=== PATIENT | male | born 1950 | race Caucasian/White ===

== ENCOUNTER 2016-12-09 17:50 | Emergency (ER) | payer BC, MEDICARE ==
[2016-12-09 18:43] VITALS: BP 151/86
--- NOTE | 2016-12-09 19:36 | UC ---
Throat Pain/Nasal [place] HPI - HPI Summary HPI Summary: "Just wore down. A lot of aches and pains..." Headache, sore throat, "swollen neck", myalgias, and increased sleeping "building for the last week or so". Patient watched his grandchildren for a week and they both have strep throat. Patient stated, "Penicillin usually doesn't work for me." Patient is retired. PCP Soraya Gore. [ End ] - History of Current Complaint Chief Complaint: UCGeneralIllness Stated Complaint: SORE THROAT/HEADACHE Time Seen by Provider: 12/09/16 19:32 Hx Obtained From: Patient Onset/Duration: Gradual Onset Severity: Moderate - Epiglottits Risk Factors Epiglottis Risk Factors: Negative - Allergies/Home Medications Allergies/Adverse Reactions: Allergies Allergy/AdvReac Type Severity Reaction Status Date / Time Sulfa Antibiotics Allergy Mild feels funny Verified 12/09/16 18:39 Shrimp Flavor Allergy Nausea And Verified 12/09/16 18:39 Vomiting Home Medications: Home Medications Esomeprazole(NF) [NexIUM(NF)] 40 mg PO DAILY PRN 12/09/16 [History Confirmed 04/20] Ibuprofen TAB* [Advil TAB*] 600 mg PO Q6H PRN 12/09/16 [History Confirmed ] PMH/Surg Hx/FS Hx/Imm Hx Previously Healthy: Yes Endocrine History Of: Denies: Diabetes Cardiovascular History Of: Reports: Cardiac Disorders - Dyslipidemia Denies: Hypertension, Pacemaker/ICD Respiratory History Of: Denies: Asthma - Surgical History Surgical History: Yes Surgery Procedure, Year, and Place: TONSILS. LT KNEE SURGERY - Family History Known Family History: Positive: None - Social History Occupation: Retired Lives: With Family Alcohol Use: Occasionally Substance Use Type: None Smoking Status (MU): Never Smoked Tobacco - Immunization History Most Recent Influenza Vaccination: November 2016 Review of Systems Constitutional: Chills, Fatigue Skin: Negative Eyes: Negative ENT: Sore Throat, Ear Ache, Nasal Discharge Respiratory: Negative Cardiovascular: Negative Gastrointestinal: Negative Genitourinary: Negative Motor: Negative Neurovascular: Negative Musculoskeletal: Negative, Myalgia Neurological: Negative Psychological: Negative All Other Systems Reviewed And Are Negative: Yes Physical Exam Triage Information Reviewed: Yes Appearance: Well-Appearing, No Pain Distress, Well-Nourished Vital Signs: Initial Vital Signs Temp 98.2 F 12/09/16 18:37 Pulse 70 12/09/16 18:37 Resp 18 12/09/16 18:37 BP 151/86 12/09/16 18:37 Pulse Ox 98 12/09/16 18:37 Vital Signs Reviewed: Yes Eye Exam: Normal Eyes: Positive: Conjunctiva Clear ENT Exam: Normal Dental Exam: Normal Neck exam: Normal Respiratory Exam: Normal Cardiovascular Exam: Normal Musculoskeletal Exam: Normal Neurological Exam: Normal Psychological Exam: Normal Skin Exam: Normal Throat Pain/Nasal Course/Dx - Course Course Of Treatment: Viral, neg strep, laryngitis, myalgias with ST/cough -- treat as viral at this time - Differential Dx/Diagnosis Differential Diagnosis/HQI/PQRI: Laryngitis, Pharyngitis, Tonsillitis, URI Provider Diagnoses: Viral pharyngitis Discharge - Discharge Plan Condition: Good Disposition: HOME Patient Education Materials: Pharyngitis (ED) Referrals: Soraya Gore MD [Primary Care Provider] - 3 Days (if your sypmtoms are not improved)
== END 2016-12-09 19:49 | disposition home or self-care (01) ==
LOC: UCCORT 17:50
DX: J02.9 Acute pharyngitis, unspecified (principal); R51 Headache; Z88.2 Allergy status to sulfonamides
CPT/HCPCS: 87651; 99211; G0463

== ENCOUNTER 2017-12-06 15:19 | Emergency (ER) | payer MEDICARE, BC ==
[2017-12-06 17:10] VITALS: BP 150/83
--- NOTE | 2017-12-06 17:18 | UC ---
Knee Pain HPI - HPI Summary HPI Summary: pt states he wrecked his L knee while standing and turning on thursday of this past week. he notes it has been swollen and painful but the swelling has improved. he has an ortho appt this thursday. the same knee has a meniscal tear in past. the knee does not lock but may give out a little. - History of Current Complaint Hx Obtained From: Patient, Family/Manager Fraud Onset/Duration: Sudden Onset Pain Intensity: 2 Character: Aching Aggravating Factor(s): Movement Alleviating Factor(s): Rest Associated Signs And Symptoms: Positive: Swelling. Negative: Weakness, Numbness , Tingling Able to Bear Weight: Yes - Risk Factors Septic Arthritis Risk Factor: Negative <Ana Aguila - Last Filed: 12/06/17 18:00> <Ivis Gore - Last Filed: 12/06/17 18:39> - History of Current Complaint Chief Complaint: UCLowerExtremity Stated Complaint: LEFT KNEE INJURY - Allergies/Home Medications Allergies/Adverse Reactions: Allergies Allergy/AdvReac Type Severity Reaction Status Date / Time shrimp Allergy Nausea And Verified 12/06/17 17:12 Vomiting Sulfa (Sulfonamide Allergy See Comment Verified 12/06/17 17:12 Antibiotics) Home Medications: Home Medications Aspirin EC Low Dose* [Ecotrin EC Low Dose 81 MG*] 1 tab DAILY 12/06/17 [History Confirmed 12/06/17] Atorvastatin* [Lipitor 10 MG*] 1 tab QAM 12/06/17 [History Confirmed 12/06/17] PMH/Surg Hx/FS Hx/Imm Hx - Additional Past Medical History Additional PMH: L meniscal tear Endocrine History: Dyslipidemia Cardiovascular History: Deep Vein Thrombosis - Surgical History Surgical History: Yes Surgery Procedure, Year, and Place: TONSILS. LT KNEE SURGERY - Family History Known Family History: Positive: None - Social History Lives: With Family Alcohol Use: Occasionally Substance Use Type: None Smoking Status (MU): Never Smoked Tobacco - Immunization History Most Recent Influenza Vaccination: November 2016 Vaccination Up to Date: Yes <Ana Aguila - Last Filed: 12/06/17 18:00> Review of Systems Constitutional: Negative Skin: Negative Eyes: Negative ENT: Negative Respiratory: Negative Cardiovascular: Negative Gastrointestinal: Negative Genitourinary: Negative Motor: Negative Neurovascular: Negative Musculoskeletal: Other: - pain and swelling L knee Neurological: Negative Psychological: Negative Is Patient Immunocompromised?: No All Other Systems Reviewed And Are Negative: Yes <Ana Aguila - Last Filed: 12/06/17 18:00> Physical Exam Triage Information Reviewed: Yes Appearance: Well-Appearing Vital Signs: Initial Vital Signs Temp 98.4 F 12/06/17 17:02 Pulse 73 12/06/17 17:02 Resp 16 12/06/17 17:02 BP 150/83 12/06/17 17:02 Pulse Ox 96 12/06/17 17:02 Vital Signs Reviewed: Yes Eyes: Positive: Conjunctiva Clear ENT: Positive: Normal ENT inspection Neck: Positive: Supple, Nontender Respiratory: Positive: Lungs clear, Normal breath sounds Cardiovascular: Positive: RRR, No Murmur Abdomen Description: Positive: Nontender, No Organomegaly, Soft Bowel Sounds: Positive: Present Musculoskeletal: Positive: Other: - LLE: hip non tender. L knee with mild swelling and tender to medial joint line but no laxity and rom(active/passive) is intact. ankle/ foot non tender. gross s/v/m is intact. Neurological: Positive: Alert Psychological: Positive: Normal Response To Family, Age Appropriate Behavior Skin Exam: Normal <Ana Aguila - Last Filed: 12/06/17 18:00> Vital Signs: Initial Vital Signs Temp 98.4 F 12/06/17 17:02 Pulse 73 12/06/17 17:02 Resp 16 12/06/17 17:02 BP 150/83 12/06/17 17:02 Pulse Ox 96 12/06/17 17:02 <Ivis Gore - Last Filed: 12/06/17 18:39> Diagnostics - Radiology No standard instances Xray Interpretation: Positive (See Comments) - OA, small effusion <Ana Aguila - Last Filed: 12/06/17 18:00> Knee Pain Course/Dx - Course Course Of Treatment: no concern for infection. no fx or dislocation. probable meniscal injury plus deg changes, small effusion noted. pt has ortho f/u in 2 days. will crutch pt but avoid patricia/immobilizer given no fx or laxity plus pt has hx DVT, - Differential Dx/Diagnosis Provider Diagnoses: Acute pain/swelling left knee. Probable meniscal tear. <Ana Aguila - Last Filed: 12/06/17 18:00> Discharge <Ana Aguila - Last Filed: 12/06/17 18:00> <Ivis Gore - Last Filed: 12/06/17 18:39> - Discharge Plan Condition: Stable Disposition: HOME Patient Education Materials: Knee Pain (ED), Meniscus Tear (ED) Referrals: Soraya Gore MD [Primary Care Provider] - If Needed Mena Cadena MD [Medical Doctor] - 2 Days Attestation Statement User Type: Provider - I was available for consult. This patient was seen by the advanced practice provider. The patient was not presented to, seen by, or examined by me.-Derrick <Ivis Gore - Last Filed: 12/06/17 18:39>
--- NOTE | 2017-12-06 17:52 | RAD ---
INDICATION: Left knee pain COMPARISON: October 22, 2012 TECHNIQUE: AP, lateral, tunnel, and sunrise views were obtained. FINDINGS: There is moderate to advanced tricompartmental osteoarthritis. There is narrowing is most severe about the medial and patellofemoral joint space compartments. There is condylar spurring and there is patellofemoral spurring. There is a small joint effusion. IMPRESSION: MODERATE TO ADVANCED OSTEOARTHRITIS WITH SMALL JOINT EFFUSION..
== END 2017-12-06 18:15 | disposition home or self-care (01) ==
LOC: UCCORT 15:19
DX: M25.562 Pain in left knee (principal); M25.462 Effusion, left knee; X50.0XXA Overexertion from strenuous movement or load, initial encounter; Y93.89 Activity, other specified; Y92.9 Unspecified place or not applicable; Z88.1 Allergy status to other antibiotic agents; Z91.013 Allergy to seafood; E78.5 Hyperlipidemia, unspecified
CPT/HCPCS: 99212; G0463

== ENCOUNTER 2018-02-16 07:49 | Inpatient (IN) | payer MEDICARE, BC ==
--- NOTE | 2018-02-11 14:30 | HP ---
PREOPERATIVE HISTORY AND PHYSICAL: DATE OF ADMISSION: 02/16/18 PROVIDER: Oanh Kendrick MD.* (DICTATED BY TAL JULIEN) CHIEF COMPLAINT: Left knee pain. HISTORY OF PRESENT ILLNESS: Mr. Jasso is a 67-year-old gentleman with complaints of ongoing left knee pain that has became chronic and aching over the last 2 years. He has difficulty ambulating more than half a block. He has difficulty with stair climbing and walking. He has failed conservative treatment and has elected to proceed with left total knee arthroplasty. PAST MEDICAL HISTORY: Left lower extremity DVT in February 2017, history of heart disease, atrial fibrillation, hypercholesterolemia, osteoarthritis, and hyperlipidemia. PAST SURGICAL HISTORY: Left knee arthroscopy in 2013, tonsils and adenoids, and a nasal surgery. He reports no complications with the anesthesia. CURRENT MEDICATIONS: 1. Crestor 10 mg p.o. daily. 2. Nexium 24-hour 20 mg by mouth twice daily. 3. Aspirin 81 mg p.o. daily. 4. Tylenol 325 mg 1 to 2 tabs every 8 hours as needed. 5. Advil 200 mg as needed. 6. Vitamin D 1000 international units daily. 7. CoQ-10 200 mg daily. 8. Cetirizine 10 mg daily. 9. Multivitamin daily. ALLERGIES: No known drug allergies. FAMILY HISTORY: Positive for diabetes, cancer, and rheumatoid arthritis. SOCIAL HISTORY: He lives with his . He is retired. He denies tobacco or recreational drug use. He drinks 1 to 2 alcoholic beverages weekly. He normally ambulates independently. He is right hand dominant. REVIEW OF SYSTEMS: A 14-point review of system was discussed with the patient. Positive for bilateral knee pain, negative for fever, chills, chest pain, shortness of breath, nausea, vomiting, headache, dizziness, vision or hearing changes, abdominal pain, easy bleeding or bruising. PHYSICAL EXAMINATION GENERAL: He is a well developed, well nourished pleasant man, in no acute distress at rest. He is alert and oriented x3 with appropriate mood and affect. Gait: He ambulates with an antalgic gait favoring the left knee. He has varus alignment. VITAL SIGNS: The patient is 6 feet 1 inch, 294 pounds. Blood pressure 140/84, pulse 67, temperature 96.8. HEENT: Normocephalic, atraumatic. His hearing and vision are grossly intact. NECK: Trachea is midline. RESPIRATORY: Lungs are clear to auscultation bilaterally. No wheezes, rales or rhonchi. CARDIOVASCULAR: Regular rate and rhythm. No murmurs, rubs, or gallops. Normal S1 and S2. ABDOMEN: Soft, nondistended, nontender, normal bowel sounds. EXTREMITIES: The left lower extremity skin is intact without abrasions or open wounds. There are no palpable masses or lymph nodes. He has a prior scar along the distal tibia. He has severe varus alignment of the knee with a moderate effusion, tenderness at the medial joint line, 15 to 120 degrees of flexion at the knee. No varus or valgus instability. Negative Rinku. Distally, he has 5/5 strength. Sensation to light touch is intact. He has 2+ dorsalis pedis pulse. DIAGNOSTIC STUDIES: Weightbearing films of the left knee were reviewed and showed [id number] arthritis in the medial compartment. He also had tricompartmental osteoarthritis with joint space narrowing, osteophyte formation , and subchondral sclerosis. IMPRESSION: Left knee osteoarthritis. PLAN/RECOMMENDATIONS: The patient is to undergo left total knee arthroplasty by Dr. Kendrick on 02/16/18. The risks, benefits and postoperative course were discussed with the patient at length and he would like to proceed. All of his questions were answered to his full satisfaction. He is understanding to call with problems or concerns. TAL JULIEN [id number]/[facility] #: [id number] TETE
[~2018-02-16 07:49] MED LIST: Buffered Lidocaine 0.9% SYRIN* 5 ML/SYR SYRINGE INTRADERM ONE
[2018-02-16] MEDS ORDERED: Buffered Lidocaine 0.9% SYRIN* 5 ML/SYR SYRINGE ONE (08:07)
[2018-02-16] MEDS ORDERED: ceFAZolin 1 GM in Dextrose (*) 1 GM/50 ML BAG IVPB ONE (08:07)
[2018-02-16] MEDS ORDERED: ceFAZolin 2 GM PREMIX (*) 2 GM/50 ML BAG IVPB ONE (08:07)
[2018-02-16] MEDS ORDERED: Bupivacaine 0.25% SDV* 30 ML ONE ×3 (09:17→09:23)
[2018-02-16] MEDS ORDERED: methylPREDNISolone ACETATE 80* 80 MG/ML 1 ML VIAL ONE (09:23)
[2018-02-16] MEDS ORDERED: Bupivacaine 0.5% PF 10 ML VIAL INJ ONE (09:25)
[2018-02-16] MEDS ORDERED: Midazolam* 1 MG/ML 5 ML VIAL (5 MG) ONE ×2 (09:26→10:14)
[2018-02-16] MEDS ORDERED: fentaNYL* 50 MCG/ML 2 ML VIAL (100 MCG VIAL) ONE ×2 (10:08→16:22)
[2018-02-16] MEDS ORDERED: Dexamethasone IV* 4 MG/ML 1 ML (4 MG) ONE (10:16)
[2018-02-16] MEDS ORDERED: fentaNYL* 50 MCG/ML 2 ML VIAL (100 MCG VIAL) IV PRN (11:00)
[2018-02-16] MEDS ORDERED: HYDROmorphone INJ* 1 MG/ML CARPUJECT SYRINGE IV PRN (11:00)
[2018-02-16] MEDS ORDERED: Ondansetron INJ* 2 MG/ML VIAL IV PRN (11:00)
[2018-02-16] MEDS ORDERED: Naloxone* 0.4 MG/ML 1 ML VIAL IV PRN (11:00)
[2018-02-16] MEDS ORDERED: DiMENhydriNATE IV* 50 MG/ML VIAL IV PUSH PRN (11:00)
[2018-02-16] MEDS ORDERED: HYDROcodone/ACETAMIN 5-325 MG* 1 TAB PO PRN (11:00)
[2018-02-16] MEDS ORDERED: oxyCODONE/Acetamin 5/325 MG* TAB PO PRN (11:00)
[2018-02-16] MEDS ORDERED: Midazolam* 1 MG/ML 2 ML VIAL (2 MG) ONE (11:27)
[2018-02-16] MEDS ORDERED: Ketorolac INJ* 30 MG/ML 1 ML VIAL ONE (12:54)
[2018-02-16] MEDS ORDERED: Ondansetron 40 MG VIAL* 2 MG/ML 20 ML VIAL IV PRN (13:03)
[2018-02-16] MEDS ORDERED: Acetaminophen TAB* 325 MG PO PRN (13:03)
[2018-02-16] MEDS ORDERED: Polyethylene Glycol 3350* 17 GM PACKET PO PRN (13:03)
[2018-02-16] MEDS ORDERED: Bisacodyl SUPP* 10 MG SUPP PR PRN (13:03)
[2018-02-16] MEDS ORDERED: Cyclobenzaprine TAB* 10 MG PO PRN (13:03)
[2018-02-16] MEDS ORDERED: Magnesium Hydroxide LIQ* 30 ML UDC PO PRN (13:03)
[2018-02-16] MEDS ORDERED: Ondansetron TAB* 4 MG PO PRN (13:03)
[2018-02-16] MEDS ORDERED: Morphine VIAL* 4 MG/ML VIAL (1 ml vial) IV PRN (13:03)
[2018-02-16] MEDS ORDERED: diPHENhydraMINE IV* 50 MG/ML 1 ml VIAL (BENADRYL) IV PRN (13:03)
[2018-02-16] MEDS ORDERED: Omeprazole CAP* 20 MG PO PRN (13:08)
--- NOTE | 2018-02-16 14:01 | RAD ---
Indication: Left knee replacement 2 views of left knee demonstrates bipolar left knee arthroplasty in satisfactory position. IMPRESSION: Left knee bipolar arthroplasty in satisfactory position.
[2018-02-16] MEDS ORDERED: oxyCODONE TAB* 5 MG TAB ONE (16:51)
[2018-02-16] MEDS: oxyCODONE TAB* 5 MG TAB PO PRN ×2 (16:52→22:31)
[2018-02-16] MEDS ORDERED: Warfarin TAB(*) 6 MG PO ONE (17:00)
[2018-02-16] MEDS: ceFAZolin 1 GM in Dextrose (*) 1 GM/50 ML BAG IVPB SCH (18:23)
[2018-02-16] MEDS: oxyCODONE/Acetamin 5/325 MG* TAB PO PRN (19:33)
--- NOTE | 2018-02-16 20:09 | CONS ---
CONSULTATION REPORT: DATE OF CONSULT: 02/16/18 PROVIDER: Lexii Lake NP ATTENDING PHYSICIAN: Dr. Doss (report dictated by Lexii Lake NP). REFERRING PHYSICIAN: Dr. Kendrick*, orthopedic surgeon. REASON FOR CONSULT: Co-medical management. HISTORY OF PRESENT ILLNESS: Mr. Jasso is a 67-year-old male with a past medical history of atrial fibrillation, hyperlipidemia, history of left lower extremity DVT in February 2017, and osteoarthritis, who underwent a left total knee arthroplasty with Dr. Kendrick today. Hospital Medicine was asked to co-medical manage. The patient was seen and evaluated in the PACU where he was found to be alert and oriented x3, lying in bed, with his at the bedside, he denies any pain. He offers no complaints at this time. The patient reports that he was on Xarelto after his DVT was diagnosed last year; however, is now on aspirin only. He has a history of paroxysmal atrial fibrillation in which he saw Dr. Lange and had a cardioversion and has had no further episodes and is on aspirin only. As far as he knows, he has maintained normal sinus rhythm. He currently offers no complaints. No shortness of breath, chest pain, or palpitations. No nausea or vomiting. No recent illnesses. PAST MEDICAL HISTORY: 1. GERD. 2. Paroxysmal atrial fibrillation, status post cardioversion in which he has maintained normal sinus rhythm and is on aspirin only. 3. History of allergic rhinitis. 4. Sleep apnea. 5. Hyperlipidemia. 6. History of left lower extremity DVT in February 2017 in which he finished a course of Xarelto, now is on aspirin only. 7. Osteoarthritis. 8. History of heart disease ?. PAST SURGICAL HISTORY: 1. Left knee arthroscopy in 2013. 2. Status post tonsillectomy and adenoidectomy. 3. Status post nasal surgery. MEDICATIONS: Home medications: 1. Crestor 10 mg p.o. daily. 2. Nexium 20 mg p.o. b.i.d. 3. Aspirin 81 mg p.o. daily. 4. Acetaminophen 325 mg 1 to 2 tabs every 8 hours as needed. 5. Advil 200 mg p.r.n. 6. Vitamin D 1000 units p.o. daily. 7. CoQ10 200 mg p.o. daily. Current medications: 1. Coumadin 6 mg p.o. once. 2. Crestor 10 mg p.o. q.a.m. 3. Percocet 5/325 mg 1 to 2 tabs p.o. q.4 hours p.r.n. 4. Oxycodone 10 mg p.o. q.4 hours p.r.n. 5. Zofran 4 mg p.o. q.6 hours p.r.n. 6. Morphine 2 mg IV q.2 hours p.r.n. 7. Narcan 0.8 mg IV q.2 hours p.r.n. 8. Milk of magnesia 30 mL p.o. b.i.d. and p.o. q.6 hours p.r.n. 9. Lactulose 30 mL p.o. q.6 hours p.r.n. 10. LR 100 mL/hour. 11. Lovenox 40 mg subcu q.24 hours. 12. Fentanyl 25 mcg IV q.2 hours p.r.n., max total 5 doses per Anesthesia. 13. Colace 100 mg p.o. b.i.d. 14. Benadryl 12.5 mg IV q.6 hours p.r.n. 15. Flexeril 10 mg p.o. t.i.d. p.r.n. 16. Zyrtec 10 mg p.o. q.a.m. 17. Cefazolin 1 g IV piggyback q.8 hours x3 only. 18. Dulcolax suppository 10 mg p.r. daily p.r.n. 19. Acetaminophen 650 mg p.o. q.4 hours p.r.n. ALLERGIES: SHRIMP, SULFA. FAMILY HISTORY: Diabetes, cancer, rheumatoid arthritis. The patient's father of sudden . SOCIAL HISTORY: Denies tobacco use. Drinks 1 to 2 alcohol beverages weekly. He lives with his , who is his healthcare proxy. 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 REVIEW OF SYSTEMS: A 14-point review of systems was performed. All the pertinent positives and negatives are mentioned in the history of present illness, otherwise negative. PHYSICAL EXAM: Vital Signs: Heart rate 62, respirations 18, O2 sat 97% on 2 L nasal cannula, blood pressure is 125/77, temperature 97.3. General Appearance: A 67-year-old obese male, lying in the bed in the PACU, alert and oriented x3 , slightly drowsy, in no acute distress. He awakes easily. is sitting at the bedside. HEENT: Head is normocephalic, atraumatic. Pupils are equal, round, and reactive to light. Oropharynx is clear. Dry mucous membranes. Cardiac: S1 and S2. Regular rate and rhythm. No murmur, rub, or gallop appreciated. No lower extremity edema noted. Lungs: Clear to auscultation bilaterally. Good aeration throughout. Abdomen: Soft, obese, nontender, and nondistended. Normal bowel sounds throughout. Extremities: No clubbing, cyanosis, or edema. Left knee is wrapped with an Romero bandage with cryo unit intact. Neuro: Alert and oriented x3. No focal deficits. The patient still cannot feel his left lower extremity. Good sensation to right lower extremity. Human Resources Services Specialist are equal and strong. No facial droop. Tongue is midline. ASSESSMENT AND PLAN: Mr. Jasso is a 67-year-old male with past medical history of paroxysmal atrial fibrillation, status post cardioversion, on aspirin only; history of left lower extremity deep venous thrombosis in February 2017 with a course of Xarelto, now only on aspirin; questionable history of heart disease; hyperlipidemia; osteoarthritis, who underwent a left total knee replacement today with Dr. Kendrick. [facility] will follow for co-medical management. 1. Status post left total knee arthroplasty, postop day 0. Disposition per Dr. Kendrick's orthopedic team. PT, OT, bowel regimen, and pain management. The patient has Lovenox 40 mg subcu 24 hours and is starting on Coumadin today. 2. Gastroesophageal reflux disease. Continue PPI, controlled. 3. History of atrial fibrillation, status post cardioversion. The patient has remained in normal sinus rhythm. We will continue to monitor, okay to hold aspirin in the postop setting. The patient will be starting on Coumadin, so the aspirin could technically be held on discharge, but he will need to restart this after he discontinues the Coumadin. The patient is not on any rate controlling medications as this is an isolated episode with successful cardioversion. We will obtain an EKG tomorrow morning. 4. History of deep venous thrombosis in 2006. As stated above, the patient did finish a course of Xarelto, now is on aspirin only. The patient is on DVT prophylaxis with Lovenox and will be bridged to Coumadin. 5. Vitamin D deficiency. Continue vitamin D supplementation 1000 units p.o. daily. 6. History of sleep apnea. The patient may use his own CPAP. 7. DVT prophylaxis: Lovenox q.24 hours with Coumadin starting this evening. Once INR is therapeutic, discontinue Lovenox. 8. Code status: Full code. TIME SPENT: Approximately 60 minutes was spent on this consultation. [facility] is going to follow along. LEXII LAKE, OFFICIAL COURT REPORTER [id number]/[facility] #: [id number] TETE
[2018-02-16] MEDS: Docusate CAP* 100 MG PO SCH (21:28)
[2018-02-16] MEDS: Magnesium Hydroxide LIQ* 30 ML UDC PO SCH (21:28)
[2018-02-17] MEDS: oxyCODONE/Acetamin 5/325 MG* TAB PO PRN ×5 (02:21→23:32)
[2018-02-17] MEDS: ceFAZolin 1 GM in Dextrose (*) 1 GM/50 ML BAG IVPB SCH ×2 (02:22→10:49)
[2018-02-17 05:54] LABS: Hematocrit 36 % (42-52); Hemoglobin 12.7 g/dl (14.0-18.0); Mean Platelet Volume 7.5 um3 (7.4-10.4); Platelet Count 167 10^3/ul (150-450)
[2018-02-17 05:59] LABS: INR 0.99 (0.77-1.02)
[2018-02-17 06:12] LABS: EGFR Non-African American 84.2 (>60)
[2018-02-17] MEDS: oxyCODONE TAB* 5 MG TAB PO PRN ×2 (06:36→12:49)
[2018-02-17] MEDS: Atorvastatin* 20 MG TAB PO SCH (08:24)
[2018-02-17] MEDS: Cetirizine* 10 MG TAB PO SCH (08:24)
[2018-02-17] MEDS: Docusate CAP* 100 MG PO SCH ×2 (08:24→20:57)
[2018-02-17] MEDS: Magnesium Hydroxide LIQ* 30 ML UDC PO SCH ×2 (08:52→20:58)
--- NOTE | 2018-02-17 09:21 | OP ---
DATE OF OPERATION: 02/16/18 - ROOM #348 DATE OF : 50 SURGEON: Oanh Kendrick MD BAG WORKER: TAL Joseph. Ms. Nguyen did help throughout the procedure with preparation of the leg, wound retraction, manipulation of the knee, and wound closure. ANESTHESIOLOGIST: Oleg Lloyd MD ANESTHESIA: Spinal. PRE-OP DIAGNOSES: 1. Bilateral severe degenerative osteoarthritis of the knees. 2. Severe end-stage degenerative osteoarthritis of the left knee joint. POST-OP DIAGNOSES: 1. Bilateral severe degenerative osteoarthritis of the knees. 2. Severe end-stage degenerative osteoarthritis of the left knee joint. OPERATIVE PROCEDURE: 1. Left total knee arthroplasty. 2. Right knee intraarticular injection under anesthesia. INDICATIONS: Ms. Jasso is a 67-year-old gentleman with years of increasingly severe left knee pain. He failed conservative treatment with antiinflammatories, pain medication, intraarticular injections, and physical therapy. Due to continued pain and decreased quality of life, he elected to undergo a left total knee arthroplasty. Radiographs showed [id number] arthritis. Informed consent was obtained from the patient. He understood the risks of surgery included but were not limited to bleeding, infection, damage to nearby structures, continued pain, need for further surgery, intra-operative fracture, nerve palsy, hardware failure or loosening, knee stiffness, loss of motion, stroke, heart attack, blood clot, and . He wished to proceed. TOURNIQUET TIME: 60 minutes. COMPLICATIONS: None. ESTIMATED BLOOD LOSS: 300 cc. SPECIMENS: Bone and cartilage from the left knee joint sent to Pathology. HARDWARE USED: This is uncemented [place] total knee arthroplasty. Two packages of Simplex bone cement. For the femur, a left size 8 posterior stabilized Legion Oxinium femoral component. For the tibia, a size 7 left tibial base plate Sun II. For the insert, a 9-mm posterior stabilized articular insert, size 7/8. For the patella, a 38-mm 3-peg all poly patella. INTRAOPERATIVE FINDINGS: Intraoperatively, the patient was noted to have severe end-stage arthritis in all three compartments with full-thickness loss of cartilage. At the start of the case, he had a 15-degree flexion contracture. This was corrected to full extension by the end of the case. DESCRIPTION OF PROCEDURE: Mr. Jasso was identified in the preanesthesia unit. His left lower extremity was marked as the correct operative side. Informed consent was signed and placed in the chart. The patient was taken to the operating room and placed under spinal anesthesia. A Singleton catheter was placed. Tourniquet was placed on the left thigh. Left lower extremity was prepped and draped in the usual sterile fashion. Preop time-out was made to correctly identify the patient's side and site. Appropriate perioperative antibiotics were given within 1 hour of incision. A 12-cm midline incision was made with a 10 blade and carried down to the extensor mechanism. A new 10 blade was used to make a standard medial parapatellar arthrotomy. The patella was subluxed laterally. Electrocautery was used to subperiosteally elevate the soft tissue off the superomedial tibia to the mid sagittal plane. The knee was flexed up. The anterior horn of the lateral meniscus and ACL were sharply released. A drill was used to enter the distal femur. Intramedullary distal femoral cutting guide was pinned on the distal femur. Oscillating saw was used to make the distal femoral cut. Next, the external rotation guide was pinned on the distal femur. The distal femur was sized to a size 8. Size 8 cutting jig was pinned on the distal femur. Oscillating saw was used to make the appropriate 4 chamfer cuts. The PCL was completely released. The tibia was subluxed anteriorly. Extramedullary tibial cutting guide was pinned on the proximal tibia. Oscillating saw was used to make the proximal tibial cut perpendicular to the mechanical axis of the tibia. Tibial bone was carefully removed. The knee was brought out into full extension. The spacer block had good fit with the knee in full extension. Medial and lateral ligaments were well balanced. Flexion and extension gaps were well balanced. The knee was flexed up. Lamina blower feeder dyed raw stock was placed both medially and laterally. Any remaining meniscus was carefully removed using electrocautery. Curved osteotome was used to remove posterior osteophytes. Once again, confirmed the satisfactory tibial cut. Size 8 left femoral trial was impacted on to the distal femur. The box for posterior stabilized implant was prepared using a reamer and box-cut osteotome. A size 7 tibial tray trial with a 9- mm insert trial was placed and the knee was taken through a range of motion. The knee had full extension to with satisfactory patellofemoral tracking. The patella was everted. 9 mm of patellar bone and cartilage was carefully removed using an oscillating saw. Patella was sized to a size 38. Two peg holes were drilled through the size 38 guide. A 38 trial placed and the knee was taken through a range of motion. There was satisfactory patellofemoral tracking. All trials were carefully removed. The tibia was subluxed anteriorly and sized to a size 7. Proximal tibia was prepared using a size 7 keel punch. All bony cut surfaces were copiously irrigated with sterile saline and dried. Final implants were cemented into place starting with the tibia followed by the femur and lastly patella. -mm insert trial was placed and the knee was brought out into full extension. Tourniquet was turned down at 60 minutes. The cement was allowed to fully cure. Electrocautery was used to obtain meticulous hemostasis. The knee was copiously irrigated with sterile saline. Once the cement had fully cured, the insert trial was removed. Any excess cement was removed from around the implants and capsule. 9-mm insert was chosen as the final insert. A 9- mm posterior stabilized articular insert was then locked into position on the tibial tray. Stability of the insert was checked and rechecked and noted to be stable. The extensor mechanism was closed using interrupted #1 Vicryls over a medium Hemovac drain. The rest of the incision was closed in a layered fashion using 0 and 2-0 Vicryls. The skin was closed using running 3-0 nylon suture. Sterile Xeroform, 4x4s, and Webril were used to cover the incision. Romero wrap and cold pack were placed over this. The patient's right knee was prepped with ChloraPrep. An intraarticular injection of 80 mg of Depo-Medrol and 6 cc of 0.25% Marcaine was placed in the knee joint. The patient was taken to the PACU in stable condition. Intended weightbearing will be weightbearing as tolerated. Intended DVT prophylaxis will be Coumadin with a Lovenox bridge. [id number]/[facility] #: [id number] [facility]ITAL[facility]ub[facility]
[2018-02-17] MEDS: Enoxaparin(*) 40 MG/0.4 ML SYR SUBCUT SCH (14:28)
--- NOTE | 2018-02-17 15:09 | PN ---
Progress Note - Progress Note Date of Service: 02/17/18 SOAP: Subjective: [] Patient seen at bedside. He feels well with pain rated 3/10 and tolerable. He denies chest pain, shortness of breath, dizziness, nausea. Objective: [] Vital Signs Temp 97.9 F 02/17/18 11:21 Pulse 79 02/17/18 11:21 Resp 18 02/17/18 14:30 BP 132/74 02/17/18 11:21 Pulse Ox 97 02/17/18 11:21 Intake & Output 02/16/18 02/17/18 02/17/18 18:59 06:59 18:59 Intake Total 2800 2247 2369 Output Total 375 750 100 Balance 2425 1497 2269 Weight 296 lb Intake: IV Fluids 2200 1007 1089 ABX - CEFAZOLIN 54 109 LR 2200 953 980 Oral 600 1240 1280 Output: Urine 200 100 Singleton 375 550 Other: # Bowel Movements 0 Estimated Blood Loss 200 Comment Laboratory Last Values Hgb 12.7 g/dl (14.0-18.0) L 02/17/18 05:38 Hct 36 % (42-52) L 02/17/18 05:38 Plt Count 167 10^3/ul (150-450) 02/17/18 05:38 MPV 7.5 um3 (7.4-10.4) 02/17/18 05:38 INR (Anticoag Therapy) 0.99 (0.77-1.02) 02/17/18 05:38 Sodium 134 mmol/L (139-145) L 02/17/18 05:38 Potassium 4.1 mmol/L (3.5-5.0) 02/17/18 05:38 Chloride 105 mmol/L (101-111) 02/17/18 05:38 Carbon Dioxide 25 mmol/L (22-32) 02/17/18 05:38 Anion Gap 4 mmol/L (2-11) 02/17/18 05:38 BUN 17 mg/dL (6-24) 02/17/18 05:38 Creatinine 0.90 mg/dL (0.67-1.17) 02/17/18 05:38 Est GFR ( Amer) 108.2 (>60) 02/17/18 05:38 Est GFR (Non-Af Amer) 84.2 (>60) 02/17/18 05:38 BUN/Creatinine Ratio 18.9 (8-20) 02/17/18 05:38 Glucose 166 mg/dL (70-100) H 02/17/18 05:38 Calcium 8.3 mg/dL (8.6-10.3) L 02/17/18 05:38 General: Well appearing, NAD LLE: left knee dressing CDI without surrounding erythema. Thigh soft. DF/PF intact. DP2+. Capillary refill less than two seconds distally. Sensation intact distally. BL LE: Calves supple and nontender without erythema, edema or palpable cords Assessment: []POD 1 sp left total knee replacement, Dr Kendrick Plan: []WBAT PT/OT Lovenox, Coumadin 8 mg today
--- NOTE | 2018-02-17 15:37 | PN ---
Subjective Date of Service: 02/17/18 Interval History: Pt reports he is doing well. pain is controlled. No SOB/CP. Reports good appetite. Singleton just removed, no void yet. No BM today. No Nausea. No fevrs or chills. Objective Active Medications: Acetaminophen (Tylenol Tab*) 650 mg PO Q4H PRN PRN Reason: PAIN OR TEMPERATURE Atorvastatin Calcium (Lipitor*) 20 mg PO QAM [facility] PRN Reason: Protocol Last Admin: 02/17/18 08:24 Dose: Not Given Bisacodyl (Dulcolax Supp*) 10 mg [place] DAILY PRN PRN Reason: constipation Cetirizine HCl (Zyrtec*) 10 mg PO QAM [facility] PRN Reason: Protocol Last Admin: 02/17/18 08:24 Dose: Not Given Cyclobenzaprine HCl (Flexeril Tab*) 10 mg PO TID PRN PRN Reason: SPASMS Diphenhydramine HCl (Benadryl Iv*) 12.5 mg IV Q6H PRN PRN Reason: PRURITIS Docusate Sodium (Colace Cap*) 100 mg PO BID [facility] Last Admin: 02/17/18 08:24 Dose: 100 mg Enoxaparin Sodium (Lovenox(*)) 40 mg SUBCUT Q24H [facility] Last Admin: 02/17/18 14:28 Dose: 40 mg Lactated Ringer's (Lactated Ringers 1000 Ml Bag*) 1,000 mls @ 100 mls/hr IV PER RATE [facility] Last Admin: 02/17/18 14:27 Dose: 100 mls/hr Lactulose (Lactulose*) 30 ml PO Q6H PRN PRN Reason: constipation Magnesium Hydroxide (Milk Of Magnesia Liq*) 30 ml PO BID [facility] Last Admin: 02/17/18 08:52 Dose: 30 ml Magnesium Hydroxide (Milk Of Magnesia Liq*) 30 ml PO Q6H PRN PRN Reason: constipation Morphine Sulfate (Morphine Vial*) 2 mg IV Q2H PRN PRN Reason: PAIN Omeprazole (Prilosec Cap*) 20 mg PO DAILY PRN PRN Reason: INDIGESTION Ondansetron HCl (Zofran 40 Mg Vial*) 4 mg IV Q6H PRN PRN Reason: nausea Ondansetron HCl (Zofran Tab*) 4 mg PO Q6H PRN PRN Reason: NAUSEA Oxycodone HCl (Roxycodone Tab*) 10 mg PO Q4H PRN PRN Reason: SEVERE PAIN Last Admin: 02/17/18 12:49 Dose: 10 mg Oxycodone/Acetaminophen (Percocet 5/325 Tab*) 2 tab PO Q4H PRN PRN Reason: PAIN Last Admin: 02/17/18 10:48 Dose: 1 tab Oxycodone/Acetaminophen (Percocet 5/325 Tab*) 1 tab PO Q4H PRN PRN Reason: PAIN Last Admin: 02/17/18 09:51 Dose: 1 tab Polyethylene Glycol/Electrolytes (Miralax*) 17 gm PO DAILY PRN PRN Reason: Constipation Warfarin Sodium (Coumadin Tab(*)) 8 mg PO ONCE@1700 ONE PRN Reason: Protocol Stop: 02/17/18 17:01 Vital Signs - 8 hr 02/17/18 02/17/18 02/17/18 07:38 08:00 08:03 Temperature 98.2 F Pulse Rate 73 Respiratory 17 18 Rate Blood Pressure 143/76 (mmHg) O2 Sat by Pulse 94 96 96 Oximetry 02/17/18 02/17/18 02/17/18 08:25 09:51 10:48 Temperature Pulse Rate Respiratory 18 18 18 Rate Blood Pressure (mmHg) O2 Sat by Pulse Oximetry 02/17/18 02/17/18 02/17/18 11:21 12:48 12:49 Temperature 97.9 F Pulse Rate 79 Respiratory 16 18 18 Rate Blood Pressure 132/74 (mmHg) O2 Sat by Pulse 97 Oximetry 02/17/18 14:30 Temperature Pulse Rate Respiratory 18 Rate Blood Pressure (mmHg) O2 Sat by Pulse Oximetry Oxygen Devices in Use Now: None Appearance: 67 yo male laying in bed A+O x3 in NAD Eyes: No Scleral Icterus, PERRLA Neck: NL Appearance and Movements; NL JVP Respiratory: Symmetrical Chest Expansion and Respiratory Effort, Clear to Auscultation Cardiovascular: NL Sounds; No Murmurs; No JVD, RRR Abdominal: NL Sounds; No Tenderness; No Distention Extremities: No Clubbing, Cyanosis, - - right knee with patricia wrap with cryo-unit in place Neurological: Alert and Oriented x 3, NL Sensation, NL Muscle Strength and Tone Result Diagrams: 02/17/18 05:38 02/17/18 05:38 Assess/Plan/Problems-Billing Assessment: Mr. Jasso is a 67 yo male with a PMH of afib, HLD, hx of LE DVT in 02/2017, osteoarthritis who underwent a elective left total knee replacement on 02/[address] Kendrick. - Patient Problems (1) Status post total left knee replacement Comment: - POD #1 - Dispo per Ortho - PT - pain management/bowel regimen (2) Afib Comment: - EKG showing SR - per pt he has maintain SR after cardioversion - on ASA only and flecainide prn (3) Hx of deep venous thrombosis Comment: - finished a course of xarelto, now on ASA only - encourage early ambulation -Started on coumadin per ortho (4) Sleep apnea Comment: - may use home cpap (5) HLD (hyperlipidemia) Comment: - statin (6) DVT prophylaxis Comment: lovenox Q24hr with coumadin- when INR is therapuetic DC lovenox (7) Full code status Status and Disposition: Inpatient. Plan to go home when medically stable. Dispo per Ortho.
[2018-02-17] MEDS ORDERED: Warfarin TAB(*) 4 MG PO ONE (17:00)
[2018-02-18] MEDS: oxyCODONE TAB* 5 MG TAB PO PRN ×3 (02:40→12:47)
[2018-02-18 05:28] LABS: ABS Basophils 0.1 10^3/ul (0-0.2); ABS Eosinophils 0.1 10^3/ul (0-0.6); ABS Lymphocytes 1.6 10^3/ul (1.0-4.8); ABS Neutrophils 7.2 10^3/ul (1.5-7.7); ABS Nucleated RBC 0 10^3/ul; Eosinophil % 1.1 % (0-6); Hematocrit 35 % (42-52); Hemoglobin 12.1 g/dl (14.0-18.0); Lymphocyte % 15.8 % (25-47); Mean Corpuscular HGB Conc 35 g/dl (31-36); Mean Corpuscular Hemoglobin 30 pg (27-31); Mean Corpuscular Volume 85 fL (80-94); Mean Platelet Volume 7.3 um3 (7.4-10.4); Nucleated Red Blood Cells % 0; Platelet Count 161 10^3/ul (150-450); Red Blood Count 4.08 10^6/ul (4.0-5.4); Red Cell Distribution Width 14 % (10.5-15)
[2018-02-18 05:36] LABS: INR 1.18 (0.77-1.02)
[2018-02-18 05:46] LABS: EGFR Non-African American 78.1 (>60)
[2018-02-18] MEDS: Magnesium Hydroxide LIQ* 30 ML UDC PO SCH (07:59)
[2018-02-18] MEDS: Atorvastatin* 20 MG TAB PO SCH (08:24)
[2018-02-18] MEDS: Cetirizine* 10 MG TAB PO SCH (08:24)
[2018-02-18] MEDS: Docusate CAP* 100 MG PO SCH (08:24)
--- NOTE | 2018-02-18 11:08 | PN ---
Progress Note - Progress Note Date of Service: 02/18/18 SOAP: Subjective: []Patient seen OOB in chair. He feels well and met his goals with physical therapy. He felt sore during PT, though tolerating well. Denies CP, SOB, dizziness, nausea, leg numbness. Objective: [] Vital Signs Temp 98.8 F 02/18/18 07:27 Pulse 90 02/18/18 07:27 Resp 18 02/18/18 11:06 BP 162/83 02/18/18 07:27 Pulse Ox 95 02/18/18 08:00 Intake & Output 02/17/18 02/18/18 02/18/18 18:59 06:59 18:59 Intake Total 2369 640 280 Output Total 525 1325 400 Balance 6454 -685 -120 Intake: IV Fluids 1089 ABX - CEFAZOLIN 109 LR 980 IVPB 55 ABX - CEFAZOLIN 55 Oral 1280 640 225 Output: Urine 525 1325 400 Other: Estimated Void Large # Bowel Movements 1 Estimated Stool Amount Large # Voids 1 Laboratory Last Values WBC 10.0 10^3/ul (3.5-10.8) 02/18/18 05:15 RBC 4.08 10^6/ul (4.0-5.4) 02/18/18 05:15 Hgb 12.1 g/dl (14.0-18.0) L 02/18/18 05:15 Hct 35 % (42-52) L 02/18/18 05:15 MCV 85 fL (80-94) 02/18/18 05:15 MCH 30 pg (27-31) 02/18/18 05:15 MCHC 35 g/dl (31-36) 02/18/18 05:15 RDW 14 % (10.5-15) 02/18/18 05:15 Plt Count 161 10^3/ul (150-450) 02/18/18 05:15 MPV 7.3 um3 (7.4-10.4) L 02/18/18 05:15 Neut % (Auto) 72.2 % (38-83) 02/18/18 05:15 Lymph % (Auto) 15.8 % (25-47) L 02/18/18 05:15 [place] % (Auto) 10.2 % (0-7) H 02/18/18 05:15 Eos % (Auto) 1.1 % (0-6) 02/18/18 05:15 Baso % (Auto) 0.7 % (0-2) 02/18/18 05:15 Absolute Neuts (auto) 7.2 10^3/ul (1.5-7.7) 02/18/18 05:15 Absolute Lymphs (auto) 1.6 10^3/ul (1.0-4.8) 02/18/18 05:15 Absolute Monos (auto) 1.0 10^3/ul (0-0.8) H 02/18/18 05:15 Absolute Eos (auto) 0.1 10^3/ul (0-0.6) 02/18/18 05:15 Absolute Basos (auto) 0.1 10^3/ul (0-0.2) 02/18/18 05:15 Absolute Nucleated RBC 0 10^3/ul 02/18/18 05:15 Nucleated RBC % 0 02/18/18 05:15 INR (Anticoag Therapy) 1.18 (0.77-1.02) H 02/18/18 05:16 Sodium 135 mmol/L (139-145) L 02/18/18 05:16 Potassium 3.6 mmol/L (3.5-5.0) 02/18/18 05:16 Chloride 104 mmol/L (101-111) 02/18/18 05:16 Carbon Dioxide 24 mmol/L (22-32) 02/18/18 05:16 Anion Gap 7 mmol/L (2-11) 02/18/18 05:16 BUN 14 mg/dL (6-24) 02/18/18 05:16 Creatinine 0.96 mg/dL (0.67-1.17) 02/18/18 05:16 Est GFR ( Amer) 100.5 (>60) 02/18/18 05:16 Est GFR (Non-Af Amer) 78.1 (>60) 02/18/18 05:16 BUN/Creatinine Ratio 14.6 (8-20) 02/18/18 05:16 Glucose 132 mg/dL (70-100) H 02/18/18 05:16 Calcium 8.4 mg/dL (8.6-10.3) L 02/18/18 05:16 General: Well appearing, NAD LLE: left knee dressing CDI without surrounding erythema. Thigh soft. DF/PF intact. DP2+. Capillary refill less than two seconds distally. Sensation intact distally. BL LE: Calves supple and nontender without erythema, edema or palpable cords Assessment: []POD 3 sp left total knee replacement, Dr Kendrick Plan: []WBAT PT/OT Lovenox, Coumadin 8 mg today DC home
[2018-02-18 12:22] VITALS: BP 148/77
[2018-02-18] MEDS: Enoxaparin(*) 40 MG/0.4 ML SYR SUBCUT SCH (12:48)
--- NOTE | 2018-02-19 08:38 | DS ---
AMENDED REPORT NOW INCLUDES COSIGNER DESIGNATION - ESIGNED BEFORE ADJUSTMENTS DISCHARGE SUMMARY: DATE OF ADMISSION: 02/16/18 DATE OF DISCHARGE: 02/18/18 DATE OF OPERATION: 02/16/18 ATTENDING PROVIDER: Oanh Kendrick MD * (DICTATED BY TAL DE LUNA) ASSOCIATE PROFESSOR OF ART HISTORY: TAL Joseph PREOPERATIVE DIAGNOSES: 1. Bilateral severe degenerative osteoarthritis of both knees. 2. Severe end-stage degenerative osteoarthritis of the left knee joint. OPERATIVE PROCEDURE: Left total knee arthroplasty, right knee intraarticular injection under anesthesia. HISTORY: Mr. Jasso is a 67-year-old gentleman with years of increasingly severe left knee pain, failed conservative treatment with antiinflammatories, pain medication, intraarticular injections, and physical therapy. Due to continued pain and decreased quality of life, he elected to undergo a left total knee arthroplasty as well as right knee intraarticular injection under anesthesia. Radiographs showed [id number] arthritis. HOSPITAL COURSE: The patient was admitted to [facility] on . He underwent a left total knee arthroplasty and right knee intraarticular injection under anesthesia by Dr. Kendrick without complication. He was transferred to PACU in stable condition, where he recovered briefly and then was transferred to short-stay surgical unit again in stable condition. He was followed by Medicine team during his stay. On postop day 1, he was well appearing, in no acute distress. Left knee dressing clean, dry, and intact without surrounding erythema. Thigh soft. Dorsiflexion, plantar flexion intact , 2+ dorsalis pedis pulse. Capillary refill less than 2 seconds distally. Sensation is intact distally. Calf supple, nontender without erythema, edema, or palpable cords. Incision was clean, dry, and intact with well-approximated wound edges. No erythema, no discharge. He used his home CPAP while in the hospital. No medication changes from his home medications. Postop day 2, he is well-appearing, no acute distress. Temperature 98.8, pulse 90, respiratory rate 18, blood pressure 162/83, pulse ox 95%. Hemoglobin 12.1, hematocrit 35. INR 1.18. The patient was deemed to be medically and orthopedically stable for discharge home. DISCHARGE MEDICATIONS: 1. Aspirin 81 mg tablet daily, resumed at home. 2. CoQ10 200 mg p.o. q.a.m., resumed at home. 3. Vitamin D 1000 mg p.o. q.a.m., resumed at home. 4. Cetirizine 10 mg p.o. q.a.m., resumed at home. 5. Crestor 10 mg p.o. q.a.m., resumed at home. 6. Nexium 20 mg tab p.o. daily p.r.n., resumed at home. 7. Multivitamin, resumed at home. 8. Flecainide acetate 150 mg, take 3 tablets p.o. once p.r.n., resumed at home. New medications include: 1. Acetaminophen 650 mg p.o. q.4 hours p.r.n., max daily dose 4000 mg from all sources. 2. Docusate 100 mg p.o. b.i.d. p.r.n. constipation. 3. Oxycodone 5 mg tabs, take 1 to 2 tabs every 4 to 6 hours p.r.n., max daily dose of 10. 4. Warfarin 2 mg tabs prescribed, to take 1 to 3 tablets daily, dose depends on INR draws. DISCHARGE INSTRUCTIONS: Weightbearing as tolerated. Home nurse to do wound check and INR draws on Mondays and . Coumadin dosin02/18/18, 8 mg ; 02/19/18, 4 mg; 02/20/18, 2 mg; 02/21/18, 2 mg; 02/22/18, to recheck INR. Pain control: Oxycodone 5 mg 1 to 2 tabs by mouth every 4 to 6 hours as needed for pain, max of 10 tabs in a day. Maximum daily dose of Tylenol 4000 mg from all sources. Follow up with Dr. Kendrick in 10 to 14 days, call for an appointment. Medications available at [facility], [address], [place]. TAL DE LUNA [id number]/[facility] #: [id number] [facility]
== END 2018-02-18 13:45 | disposition home or self-care (01) | DRG 470 ==
LOC: AA 07:49 → SSU 16:51
PROVIDERS: ADMIT Orthopaedic Surgery Adult Reconstructive Orthopaedic Surgery; ATTEND Orthopaedic Surgery Adult Reconstructive Orthopaedic Surgery
PROC: 3E0U3BZ Introduction of Anesthetic Agent into Joints, Percutaneous Approach (ICD-10-PCS; 2018-02-16)
PROC: 3E0U33Z Introduction of Anti-inflammatory into Joints, Percutaneous Approach (ICD-10-PCS; 2018-02-16)
PROC: 0SRD069 Replacement of Left Knee Joint with Oxidized Zirconium on Polyethylene Synthetic Substitute, Cemented, Open Approach (ICD-10-PCS; principal; 2018-02-16 10:00)
DX: M17.0 Bilateral primary osteoarthritis of knee (principal); E78.00 Pure hypercholesterolemia, unspecified; K21.9 Gastro-esophageal reflux disease without esophagitis; I48.0 Paroxysmal atrial fibrillation; E78.2 Mixed hyperlipidemia; G47.33 Obstructive sleep apnea (adult) (pediatric); E66.9 Obesity, unspecified; J30.9 Allergic rhinitis, unspecified; R97.20 Elevated prostate specific antigen [PSA]; M25.462 Effusion, left knee; E55.9 Vitamin D deficiency, unspecified; M25.762 Osteophyte, left knee; Z79.82 Long term (current) use of aspirin; Z79.01 Long term (current) use of anticoagulants; Z68.39 Body mass index [BMI] 39.0-39.9, adult; Z86.711 Personal history of pulmonary embolism; Z86.718 Personal history of other venous thrombosis and embolism; Z83.3 Family history of diabetes mellitus; Z82.61 Family history of arthritis; Z80.9 Family history of malignant neoplasm, unspecified; Z72.89 Other problems related to lifestyle; Z98.41 Cataract extraction status, right eye; Z80.1 Family history of malignant neoplasm of trachea, bronchus and lung; Z88.2 Allergy status to sulfonamides; Z91.013 Allergy to seafood
CPT/HCPCS: 36415; 80048; 85014; 85018; 85025; 85049; 85610; 88305; 88311; 93005; A9270-GY; C1776; G8978-GP-CI; G8979-GP-CH; G8987-GO-CJ; G8988-GO-CI; J0690; J1040; J1100; J1650; J1885; J2250; J2405; J3010

== ENCOUNTER 2019-05-15 19:56 | Emergency (ER) | payer MEDICARE, BC ==
[2019-05-15 20:14] VITALS: BP 168/94
[2019-05-15] MEDS ORDERED: Cephalexin CAP* 500 MG PO ONE (20:30)
--- NOTE | 2019-05-15 20:32 | UC ---
Throat Pain/Nasal [place] HPI - HPI Summary HPI Summary: SORE THROAT, PRODUCTIVE COUGH AND SINUS CONGESTION X5 DAYS. CHILLS LAST NIGHT. NO FEVER. TRIED SINUS FLUSH AND ROBITUSSIN DM QPM. [ End ] - History of Current Complaint Chief Complaint: UCRespiratory Stated Complaint: SORE THROAT Time Seen by Provider: 05/15/19 20:21 Hx Obtained From: Patient Onset/Duration: Sudden Onset, Lasting Days Severity: Moderate Pain Intensity: 5 Associated Signs & Symptoms: Positive: Dysphagia, Sinus Discomfort, Nasal Discharge - Allergies/Home Medications Allergies/Adverse Reactions: Allergies Allergy/AdvReac Type Severity Reaction Status Date / Time shrimp Allergy Nausea And Verified 05/15/19 20:06 Vomiting Sulfa (Sulfonamide Allergy See Comment Verified 05/15/19 20:06 Antibiotics) PMH/Surg Hx/FS Hx/Imm Hx Previously Healthy: Yes - Surgical History Surgical History: Yes Surgery Procedure, Year, and Place: TONSILS. LT KNEE- ARTHROSCOPIC. REPAIR - FRACTURED NOSE - Family History Known Family History: Positive: None Negative: Cardiac Disease, Hypertension - Social History Alcohol Use: Occasionally Substance Use Type: None Smoking Status (MU): Never Smoked Tobacco - Immunization History Most Recent Influenza Vaccination: November 2016 Most Recent Pneumonia Vaccination: HAS HAD Vaccination Up to Date: Yes Review of Systems All Other Systems Reviewed And Are Negative: Yes Constitutional: Positive: Chills, Fatigue ENT: Positive: Sore Throat, Ear Ache, Nasal Discharge, Sinus Pain/Tenderness Respiratory: Positive: Cough Is Patient Immunocompromised?: No Physical Exam Triage Information Reviewed: Yes Appearance: Well-Nourished, Ill-Appearing, Pain Distress Vital Signs: Initial Vital Signs Temp 97.6 F 05/15/19 20:07 Pulse 76 05/15/19 20:07 Resp 20 05/15/19 20:07 BP 168/94 05/15/19 20:07 Pulse Ox 97 05/15/19 20:07 Vital Signs Reviewed: Yes Eye Exam: Normal ENT: Positive: Pharyngeal erythema, Nasal drainage, TM bulging, Tonsillar swelling, Tonsillar exudate, Sinus tenderness Dental Exam: Normal Neck exam: Normal Neck: Positive: Enlarged Nodes @ - left cervical Respiratory: Positive: Chest non-tender, No respiratory distress, No accessory muscle use, Wheezing, Inspiration Cardiovascular Exam: Normal Cardiovascular: Positive: RRR, No Murmur, Pulses Normal Abdominal Exam: Normal Abdomen Description: Positive: Nontender, No Organomegaly, Soft Bowel Sounds: Positive: Present Musculoskeletal Exam: Normal Neurological Exam: Normal Psychological Exam: Normal Skin Exam: Normal Throat Pain/Nasal Course/Dx - Course Course Of Treatment: hx obtained,exam performed, meds reviewed, treated for sinusitis - Differential Dx/Diagnosis Differential Diagnosis/HQI/PQRI: Pharyngitis, Sinusitis Provider Diagnosis: Pharyngitis, Sinusitis Discharge - Sign-Out/Discharge Documenting (check all that apply): Patient Departure All imaging exams completed and their final reports reviewed: No Studies - Discharge Plan Condition: Stable Disposition: HOME Patient Education Materials: Sinusitis (ED) Referrals: Soraya Gore MD [Primary Care Provider] - Additional Instructions: 1. take the medication as prescribed. 2. COntinue with nasal flushes and salt water gargles follow up as needed. - Billing Disposition and Condition Condition: STABLE Disposition: Home
== END 2019-05-15 20:38 | disposition home or self-care (01) ==
LOC: UCCORT 19:56
DX: J02.9 Acute pharyngitis, unspecified (principal); J32.9 Chronic sinusitis, unspecified; Z88.2 Allergy status to sulfonamides
CPT/HCPCS: 99212; A9270-GY; G0463